=== PATIENT | female | born 1975 | race Caucasian/White ===

== ENCOUNTER → 2017-08-09 | Outpatient (CLI) | payer OTHER ==
[~2017-08-09] MED LIST: BIOTIN1 MG PO; CATAPRES0.1 MG PO; DURAGESIC1 EACH TRANSDERM; DURAGESIC25 MCG/HR TRANSDERM; FIBER CHOICE C1.5 G1 PO; LYRICA 50 MG50 MG PO; LYRICA100 MG PO; MOBIC15 MG PO; NORCO 5-325 TA1 EACH PO; SEROQUEL 50 MG50 MG PO
== END ==
LOC: RAD 13:10
DX: M25.552 Pain in left hip (principal)

== ENCOUNTER → 2017-11-14 | Outpatient (CLI) | payer OTHER ==
[~2017-11-14] VITALS: Ht 162.6 cm; Wt 83.0 kg
--- NOTE | ~2017-11-14 | HPC ---
[facility] [place] [address] PAIN MANAGEMENT CONSULTATION Name: ELSA ENGLISH Room #: REG TYLER Perez.#: [id number] Admission: 11/14/17 Attend Phys: Eron Shelton DO Discharge: Date of : 77 Report #: [id number] THIS REPORT FOR: //name// CC: Patty Shelton The patient is a 42-year-old female, prior seen in the pain clinic on 10/24/2017. The patient was seen in consultation at that time, diagnosed with lumbar radiculopathy status post decompressive laminectomy, chronic pain syndrome requiring complex medication management, neuropathic pain with left hip pain. We discussed differential diagnosis of primary left hip pain versus a left L2 radicular pain. We elected to move forward with left hip injection under fluoroscopy today. If this does not afford adequate relief, we will move forward with left L2-L3 transforaminal epidural injection. If this does not afford good relief, we can consider spinal cord stimulator as a possible therapeutic option to help with her chronic pain generator. I noted on consultation dictation on 10/24/2017 that I am leaving practice at the end of November. Hence, I would not take over any chronic pain management patients. We have elected to continue a short-term analgesic, I did renew the patient's Duragesic, decreasing from 25 to 12 mcg q.72 hours. I did continue hydrocodone 5/325 b.i.d. We also did continue Lyrica 100 mg t.i.d., 90 tablets. I gave the patient 2 refills at that time. She does return to the pain clinic today noting that pain had increased with a lowered opiate dose, though the patient had rated her pain anywhere from 5-10 on a VAS on intake questionnaire while she was still utilizing a higher dose opiate (Duragesic 25 mcg q.72 hours, hydrocodone 5/325 of 2-3 a day). She presents to pain clinic today for prior authorized left hip injection under fluoroscopy. We will renew Duragesic at 12 mcg for one more cycle (10 patches q.72 hours for 30 days).. I told the patient I will see her back in 2 weeks for reevaluation. If she has good relief with this injection, I will ask her to start to discontinue the Duragesic and simply wean down on hydrocodone. If, however, she gets no significant relief, we will perform a left L2-3 transforaminal epidural injection. Regardless, one of the two therapeutic interventions hopefully will mitigate her chronic pain generator to some degree, and we can discontinue Duragesic altogether. I suggest when we discontinue the Duragesic, we would likely start the patient on a scheduled hydrocodone 5/325 t.i.d. for 10 days, b.i.d. for 10 days, once daily for 10 days and then off altogether. We reviewed the fact that opiate medications are being used to provide analgesia adequate to support activities of daily living, not attempting to achieve a specific pain score on the 0-10 Visual Analog Scale. The current opiate medications are providing sufficient analgesia to allow the patient to participate in activities of daily living. The patient is not exhibiting any [address] [address] PAIN MANAGEMENT CONSULTATION Name: ENGLISHELSA CHU Room #: REG TYLER Ibarra#: [id number] Admission: 11/14/17 Attend Phys: Eron Shelton, DO Discharge: Date of : 77 Report #: [id number] aberrant behavior suggestive of drug diversion. The patient is not having any adverse reactions to medications. The patient is not suffering from daytime somnolence or mental acuity changes. The patient is managing opiate-induced constipation with appropriate vxqg-qri-sdpnuhd agents and dietary considerations. The patient was counseled on concern for caution with operating a motor vehicle while using opiate medications. A physical exam was performed and the patient's functional status was evaluated. All patients with back pain were advised against the bed rest greater than 4 days and were advised to return to normal activities. Pain score assessment was noted and the treatment plan was reviewed with the patient. All current medications, both prescribed and OTC were reviewed and reconciled on the electronic medical record. Tobacco screening was accomplished and smoking cessation was advised when indicated. BMI was noted and diet/exercise modification was recommended for all patients following outside normal parameters. I reviewed with the patient today their responsibilities to safeguard prescription medications, reviewed their responsibility to utilize medications only as prescribed by the physician. They are to seek and receive pain medications only from 1 physician group ( [facility]). They are to use 1 pharmacy and keep the clinic informed if they change pharmacies. Their responsibilities include making followup visits in a timely fashion and to avoid abrupt discontinuation of medication usage. Their responsibilities further include bringing their medications (bottles from the pharmacy with residual pills) to the visit for possible confirmation of pill counts and the patient understands it is their responsibility to submit to random drug screens to ensure both that the medications prescribed are present, and that no other controlled substances are present. All prescriptions provided today were generated electronically. ASSESSMENT: 1. Symptomatic lumbar radiculopathy, status post decompressive laminectomy, neuropathic pain requiring complex medication management. RECOMMENDATIONS: Medication management as noted above. 2. Acute exacerbation of left hip pain.. I did review x-rays taken 08/09/2017 of left hip, which shows normal alignment appearance of the hip, no acute bony abnormality; however, with pain noted with rotation and movement of the left hip, we elected to proceed with injection under fluoroscopy today. PROCEDURE NOTE: Left hip injection under fluoroscopy. PROCEDURE: After written informed consent was obtained, the patient was placed in supine position. Skin overlying the hip was cleansed with ChloraPrep. Skin [address] [address] PAIN MANAGEMENT CONSULTATION Name: ELSA ENGLISH [facility] [id number] Admission: 11/14/17 Attend Phys: Eron Shelton DO Discharge: Date of : 77 Report #: [id number] wheal with Xylocaine was raised. A 22-gauge stylet needle was placed to contact the anterior proximal aspect of the femoral head. Initial injection showed spread within the striated fibers anterior to the hip. Needle was repositioned. Second injection did show spread within the hip socket. This was followed with 40 mg triamcinolone, plus 2 mL of 0.5% preservative-free bupivacaine. Needle was removed. The area was cleansed. Band-Aid was applied. The patient told to use ice to the area. Follow up in 2 weeks for reevaluation. We will plan on moving forward with left L2-3 transforaminal epidural injection at next visit if she does not get relief with today's injection. <ELECTRONICALLY SIGNED> By: Eron Shelton DO 11/15/17 0659 1145 1731 Eron Shelton DO /kirk
[2017-11-14 08:36] VITALS: BP 129/87
== END | disposition home or self-care (01) ==
LOC: PAIN 11-01 12:29
DX: M25.552 Pain in left hip (principal); G89.4 Chronic pain syndrome; Z98.890 Other specified postprocedural states; Z79.891 Long term (current) use of opiate analgesic; Z88.8 Allergy status to other drugs, medicaments and biological substances

== ENCOUNTER → 2017-12-20 | Outpatient (CLI) | payer OTHER ==
[~2017-12-20] VITALS: Ht 162.6 cm; Wt 82.6 kg
--- NOTE | ~2017-12-20 | HPC ---
[facility] [place] [address] PAIN MANAGEMENT CONSULTATION Name: ELSA ENGLISH Room #: REG TYLER Perez.#: [id number] Admission: 12/20/17 Attend Phys: Eron Shelton DO Discharge: Date of : 77 Report #: [id number] THIS REPORT FOR: //name// CC: Patty Shelton The patient is a 42-year-old female, prior seen in pain clinic 11/14/2017. She was initially seen in consultation, 10/24/2017. Diagnosed with symptomatic lumbar radiculopathy status post decompressive laminectomy with component of neuropathic pain, left hip. We were asked to perform a left hip injection versus L2 transforaminal epidural injection to help delineate pathology. We ultimately progressed to perform a left hip joint injection 11/14/2017. This really afforded nominal relief. I have weaned her Duragesic now from 25 to 12 mcg. Continue hydrocodone 5 mg maximum b.i.d., prescription for 60 tablets generated 34 days ago, still has those tablets left. Returns to pain clinic today. We sought authorization for and plan to do a left L2-3 transforaminal epidural injection. She rates pain 8-9 on a VAS, exacerbated with standing, walking and bending. She is very desirous of trying to address the pain generator. I think the left L2-3 transforaminal epidural injection will be enlightening, will either afford good relief, if it affords only transient relief, we will refer to Neurosurgery sure there is no surgically correctable pathology. If there is not, the patient would be an excellent candidate for spinal cord stimulator. We talked about this at length. Presently, physical exam is unchanged from presentation. A 42-year-old female, BMI is 30.2 kilograms per meter squared. Vital signs stable as noted on the EMR, modest hypertension at blood pressure 139/95. Rises from chair using armrest, antalgic gait, pain radiating to the left hip and groin, pain exacerbated with hip flexion. Decreased patellar reflex on this side. Well-healed surgical scar compatible with prior decompressive laminectomy. Left hip x-ray is fairly unremarkable. ASSESSMENT: Symptomatic lumbar radiculopathy status post decompressive laminectomy. RECOMMENDATIONS: We will plan on performing left L2-3 transforaminal epidural injection next week. The patient is to work this evening and she is loathe to have an injection. Concerned that she may have some weakness and would not be able to work tonight. I have agreed to renew her Duragesic 12 mcg but limited to 5 patches, have her use this for another week. Continue rare use of hydrocodone. After the [facility] [address] [place] [address] PAIN MANAGEMENT CONSULTATION Name: ENGLISHELSA PARKER Room #: REG TYLER Ibarra#: [id number] Admission: 12/20/17 Attend Phys: Eron Shelton DO Discharge: Date of : 77 Report #: [id number] injection, we will plan on having her discontinue the Duragesic altogether and use hydrocodone 5/325 three a day for 5 days, 2 a day for 5 days, 1 a day for 5 days and then discontinue. Again, if injection afforded only transient relief, we will refer to Neurosurgery and consideration for spinal cord stimulator. We will defer to Dr. Delta Shelton or Zachary Moscoso for further therapy following the injection next week. <ELECTRONICALLY SIGNED> By: Eron Shelton DO 12/23/17 0710 1127 1933 Eron Shelton DO /nt
[2017-12-20 09:58] VITALS: BP 139/95
== END ==
LOC: PAIN 12-13 06:43
DX: M54.16 Radiculopathy, lumbar region (principal); M96.1 Postlaminectomy syndrome, not elsewhere classified

== ENCOUNTER → 2017-12-27 | Outpatient (CLI) | payer OTHER ==
[~2017-12-27] VITALS: Ht 162.6 cm; Wt 83.9 kg
--- NOTE | ~2017-12-27 | HPC ---
[facility] [place] [address] PAIN MANAGEMENT CONSULTATION Name: ELSA ENGLISH Room #: REG TYLER Ibarra#: [id number] Admission: 12/27/17 Attend Phys: Eron Shelton DO Discharge: Date of : 77 Report #: [id number] THIS REPORT FOR: //name// CC: Patty Shelton The patient is a 42-year-old female, prior seen on 12/20/2017. Diagnosed with symptomatic lumbar radiculopathy status post decompressive laminectomy with left L2 radicular pain pattern. We sought authorization for left L2-L3 transforaminal epidural injection under fluoroscopy. The patient presents to pain clinic today for said injection. Symptoms are unchanged from prior visit, 12/20/2017. ASSESSMENT: Symptomatic lumbar radiculopathy status post decompressive laminectomy. PROCEDURE: Transforaminal epidural injection under fluoroscopy, left L2-L3. PROCEDURE NOTE: After both written and informed consent was obtained including risk of spinal cord damage, infection, increased pain and paralysis, the patient agreed to proceed. The patient was taken to the fluoroscopy suite, placed in a prone position with appropriate abdominal bolstering. After sterile prep with ChloraPrep and sterile drape, a skin wheal with 1% Xylocaine was raised. A 22 gauge 4-1/2 inch epidural Tuohy needle was inserted. From an oblique approach into the posterior-superior aspect of the left L2-L3 neural foramen with continuous pressure on the glass syringe plunger for loss of resistance. Glass syringe was filled with 2 cc of 0.1 Xylocaine. The glass loss of resistance syringe was removed. A low volume extension tubing was connected, negative aspiration was accomplished for cerebrospinal fluid or blood. 1 mL of Omnipaque was injected which showed spread both within the epidural space and laterally along the nerve root. This was followed with 80 mg of triamcinolone plus 1 mL of 1.5% preservative-free Xylocaine. Needle was partially withdrawn, 0.5 mL of Xylocaine was injected to clear the needle and the needle was removed. The area was cleansed, band-aid was applied. The patient was allowed to ambulate to the recovery room, discharged in good and stable condition. <ELECTRONICALLY SIGNED> By: Eron Shelton DO 12/30/17 0706 0924 1401 Eron Shelton DO /nt
[2017-12-27 08:50] VITALS: BP 130/88
== END | disposition home or self-care (01) ==
LOC: PAIN 07:09
DX: M54.16 Radiculopathy, lumbar region (principal); G89.29 Other chronic pain; Z98.890 Other specified postprocedural states; Z88.8 Allergy status to other drugs, medicaments and biological substances; Z79.891 Long term (current) use of opiate analgesic

== ENCOUNTER → 2018-01-09 | Outpatient (CLI) | payer OTHER | LOC: MRI 07:09 → PAIN 14:30 → MRI 15:19 | DX: M54.16 Radiculopathy, lumbar region (principal) ==

== ENCOUNTER 2018-12-18 14:33 | Emergency (ER) | payer OTHER ==
[~2018-12-18] VITALS: Ht 160 cm; Wt 83.5 kg
[2018-12-18 15:19] LABS: ABSOLUTE NEUTROPHILS 4.6 thou/uL (1.4-8.2); BASOPHILS 0.6 % (0.0-2.0); EOSINOPHILS 1.2 % (0.0-3.0); HEMATOCRIT 38.5 % (37.0-47.0); HEMOGLOBIN 13.3 gm/dL (12.0-15.0); MCH 29.2 pg (26.0-34.0); MCHC 34.4 g/dL (28.0-37.0); MCV 84.9 fL (80.0-100.0); MONOCYTES 4.6 % (1.0-8.0); PLATELET COUNT 314 thou/uL (150-400); POLYS 74.6 % (36.0-66.0); RBC 4.54 mil/uL (4.20-5.00); RDW 14.2 % (10.5-14.5); WBC 6.2 thou/uL (4.0-11.0)
[2018-12-18 15:26] LABS: ANION GAP 11 mmol/L (7-16); BUN 10 mg/dL (7-18); CALCIUM 9.4 mg/dL (8.5-10.1); CHLORIDE 103 mmol/L (98-107); CO2 25 mmol/L (21-32); CREATININE 0.8 mg/dL (0.6-1.0); GLUCOSE 141 mg/dL (74-106); POTASSIUM 3.6 mmol/L (3.5-5.1); SODIUM 139 mmol/L (136-145)
[2018-12-18 15:36] LABS: SGOT 36 U/L (15-37); SGPT 53 U/L (30-65); TOTAL BILIRUBIN 0.2 mg/dL (<0.1-1.0); TOTAL PROTEIN 8.4 g/dL (6.4-8.2); TROPONIN-I <0.06 ng/mL (<0.06)
[2018-12-18] MEDS ORDERED: TRILEPTAL300 MG PO (16:13)
[2018-12-18] MEDS ORDERED: ATIVAN0.5 MG PO (18:36)
[2018-12-18 19:02] VITALS: BP 136/87
--- NOTE | 2018-12-19 08:34 | EKG ---
[place] [address] [facility] [place] [address] ELECTROCARDIOGRAM REPORT Name: ELSA ENGLISH Room #: [facility]#: [id number] ������������������ Admission: 12/18/18 ������������������ Attend Phys: Discharge: 12/18/18 ������������������ Date of : 77 Report #: [id number] ����������������������������������������������������������������� [id number] THIS REPORT FOR: //name// [facility] ED Test Date: 2018-12-18 Test Time: 14:45:43 Pat Name: ELSA ENGLISH Department: Room: Gender: F Weapons Mechanic: : 1975 Requested By: Una Olivas Order Number: [id number] MD: Jarred Hylton Measurements Intervals [place] Rate: 108 P: 38 NH: 149 QRS: 12 QRSD: 68 T: -51 QT: 391 QTc: 524 Interpretive Statements Sinus tachycardia Nonspecific ST and T wave abnormality Prolonged QT interval Baseline wander in lead(s) V4 No previous ECG available for comparison Electronically Signed On 12-19-2018 8:33:55 CDT by Jarred Hylton [email or web address] ��������������������������������������������� <ELECTRONICALLY SIGNED> ���������������������������������������� By: Jarred Hylton MD, [facility] ��������������������������������������������� 12/19/18 0833 1445 1445 Jarred Hylton MD, FACC /EPI
== END 2018-12-18 19:02 | disposition home or self-care (01) ==
LOC: ER 14:33
PROVIDERS: Physician Assistant
DX: R42 Dizziness and giddiness (principal); R51 Headache; I10 Essential (primary) hypertension; M54.2 Cervicalgia; R20.2 Paresthesia of skin; Z90.49 Acquired absence of other specified parts of digestive tract; Z88.1 Allergy status to other antibiotic agents; Z91.030 Bee allergy status

== ENCOUNTER → 2019-02-18 | Outpatient (CLI) | payer OTHER ==
[~2019-02-18] VITALS: Ht 162.6 cm; Wt 84.5 kg
[~2019-02-18] MED LIST changes: +ATIVAN0.5 MG PO; +TRILEPTAL300 MG PO; +ZYRTEC10 M5 PO
--- NOTE | ~2019-02-18 | HPC ---
[facility] [place] [address] PAIN MANAGEMENT CONSULTATION Name: ELSA ENGLISH Room #: REG TYLER Chris.#: [id number] Admission: 02/18/19 Attend Phys: Delta Shelton DO Discharge: Date of : 77 Report #: [id number] THIS REPORT FOR: //name// CC: Dleta Tilley MD DATE OF SERVICE: 02/18/2019 REFERRING PHYSICIAN: Patty Tilley M.D. CHIEF COMPLAINT: Low back pain, bilateral lower extremity pain with paresthesias, left greater than right. HISTORY OF PRESENT ILLNESS: As you know, the patient is a 43-year-old female who reports acute changes in her low back symptoms began about 1-1/2 months ago. Indicates no injury or trauma. She has had constant pain since 2008 for which she received interventional treatments and ultimately surgery performed at the L4-L5 level. She indicates that the pain has now changed distribution, is radiating down the buttock and posterolateral thigh all the way to the bottom of the foot in a typical what appears to be S1 distribution. She states her pain is constant, exacerbated with activity or anything in excess. Rest, heat compresses, cold compresses and repositioning tends to improve pain. She is placing pain score 7/10. The patient denies injury or trauma that may have led to symptom reoccurrence. The patient's most recent imaging of January 09, 2018 shows postsurgical changes at the L4-L5 level with anterior lower lumbar spinal fusion. No significant central canal neural foraminal stenosis noted at any level. No pathologic findings in the epidural space. She has been referred back to our clinic to discuss options for treatment for suspected S1 radiculopathy. She indicates no injury or trauma. ALLERGIES: ERYTHROMYCIN. CURRENT MEDICATIONS: Zyrtec 10 mg once a day, Trileptal 300 mg twice a day, Lyrica 100 mg 3 times a day, and meloxicam 15 mg once a day. SOCIAL HISTORY: The patient denies tobacco, alcohol, IV or illicit drug use. She is working, not receiving workmen's compensation, unaccompanied today. IMAGING: There is no new imaging available. PHYSICAL EXAMINATION: VITAL SIGNS: Blood pressure 121/79, pulse 73, respiratory rate 16 and unlabored. The patient is 100% on room air. Height 5 feet 4 inches tall, weight 186.2 pounds, BMI calculated at 31.9. GENERAL: Well-developed, well-nourished, well-hydrated 43-year-old female, [place] [address] PAIN MANAGEMENT CONSULTATION Name: ELSA ENGLISH Room #: REG TYLER Ibarra#: [id number] Admission: 02/18/19 Attend Phys: Delta Shelton DO Discharge: Date of : 77 Report #: [id number] appears her stated age. She is placing current pain score at 7/10. HEENT: Normocephalic, atraumatic. Pupils equal, round, reactive to light. Extraocular muscles are intact. Sclerae nonicteric without injection. Dentition poor. LUNGS: Clear, no wheeze, rhonchi, no rales. CARDIOVASCULAR: Regular. No appreciable gallop, no rub. ABDOMEN: Soft, obese, normoactive bowel sounds. EXTREMITIES: Show no clubbing, no cyanosis, and no edema. MUSCULOSKELETAL: Lower extremity strength appears symmetrical 5/5. Muscle bulk and tone is equal and symmetrical in comparing left lower extremity to right. Seated straight leg raising negative. Supine straight leg raising positive on the left. Kenny's test negative. Modified Gaenslen's positive for axial low back pain. Ankle clonus negative. Babinski is negative. Gait is mildly antalgic favoring left lower extremity over right. ASSESSMENT: 1. Lumbar radiculopathy. 2. Lumbosacral spondylosis with radiculopathy. 3. Chronic intractable pain. PLAN: 1. Based on today's physical exam, the history the patient provides the descriptors that she uses in regards to pain as well as the distribution of symptoms radiating from the lower back to the buttock and down the posterolateral thigh to underneath the foot, the likely source of the patient's pain is lumbar radiculopathy involving the S1 dermatomal distribution. As indicated in the HPI, there is no new imaging. Previous imaging done a year ago showed no changes at the L5-S1 level, though this may have seen some changes and possibly even some surgical scarring could be contributing. The distribution of symptoms does appear to be S1 based on the physical exam and we discussed treatment options for lumbar radiculopathy with the patient today the following was discussed with the patient. We discussed physical therapy, stretching exercises and core strengthening as a treatment course. We discussed medication management utilizing elevated doses of Lyrica to control neuropathic symptoms. We discussed a lumbar epidural injection under fluoroscopic guidance to address acute lumbar radicular symptoms and ultimately surgical options. After reviewing the risks and benefits of all proposed treatment options, the patient chose to move forward with a lumbar epidural injection under fluoroscopic guidance. 2. The patient was advised that third green party payer restrictions require that authorization be obtained before the patient could undergo a lumbar epidural injection. Lumbar epidural injection approvals could take anywhere from 4-7 working days. We will begin this process immediately. Once we have achieved this authorization, we will have the patient return to undergo an L5-S1 interlaminar epidural steroid injection to address lumbar radicular symptoms. We will keep the patient apprised of our progress to obtain this authorization. [address] [address] PAIN MANAGEMENT CONSULTATION Name: ENGLISHELSA Room #: REG TYLER Perez.#: [id number] Admission: 02/18/19 Attend Phys: Delta Shelton DO Discharge: Date of : 77 Report #: [id number] 3. No medication changes made at today's visit. Recommend the patient to continue current medical therapy as previously prescribed. 4. We will see the patient back in followup visit once we have achieved authorization for the patient to undergo the first in a series of L5-S1 interlaminar epidural injections. 5. We wish to thank the referring physician, Dr. Patty Tilley, for the re-referral of the patient to our clinic. We will keep you apprised of response to treatment as we address suspected lumbar radiculopathy. Again, we wish to thank you for the opportunity to see the patient in consultation. By: 1122 2254 Delta Shelton DO /nt
[2019-02-18 08:22] VITALS: BP 121/79
--- NOTE | 2019-02-18 08:31 | NUR ---
Pain Clinic Assessment: 1. History of Osteoarthritis: History of Rheumatoid Arthritis: 2. Height: 5 ft. 4 in. 162.6 cm. Weight: 186.2 lb. oz. 84.460 kg. Patient's BMI: 31.9 3. Vital Signs: BP: 121/79 Pulse: 73 Resp: 16 Temp: 02 Sat: 100 ECG Mon: 4. Pain Intensity: 7 5. Fall Risk: Dizziness: N Needs help standing or walking: N Fallen in the last 3 months: N Fall risk comments: 6. Patient on Blood Thinner: None 7. History of Hypertension: N 8. Opioid Therapy greater than 6 weeks: Y Opiate Contract Signed: 12/20/17 9. Risk Assessment Tool Provided: 10-HIGH RISK 10. Functional Assessment Tool: 11. Recreational Drug Use: Never Drug Type: Tobacco Use: Never Smoker Tobacco Type: Amount or Packs/day: How Many Years: Alcohol Use: Yes Frequency: Special Occasions Quant:
== END ==
LOC: PAIN 06:38
DX: M47.27 Other spondylosis with radiculopathy, lumbosacral region (principal); G89.29 Other chronic pain

== ENCOUNTER → 2019-03-31 | Outpatient (CLI) | payer OTHER ==
[~2019-03-31] VITALS: Ht 162.6 cm; Wt 89.1 kg
[~2019-03-31] MED LIST changes: +NORCO 5-325 TA1 EAC1 PO; +PENNSAID112 GM TOP
[2019-03-31 10:47] VITALS: BP 128/84
--- NOTE | 2019-03-31 11:02 | NUR ---
Pain Clinic Assessment: 1. History of Osteoarthritis: Not Applicable History of Rheumatoid Arthritis: Not Applicable 2. Height: 5 ft. 4 in. 162.6 cm. Weight: 196.4 lb. oz. 89.087 kg. Patient's BMI: 33.7 3. Vital Signs: BP: 128/84 Pulse: 74 Resp: 16 Temp: 02 Sat: 98 ECG Mon: 4. Pain Intensity: 7 5. Fall Risk: Dizziness: N Needs help standing or walking: N Fallen in the last 3 months: N Fall risk comments: 6. Patient on Blood Thinner: None 7. History of Hypertension: N 8. Opioid Therapy greater than 6 weeks: Y Opiate Contract Signed: 12/20/17 9. Risk Assessment Tool Provided: 10-HIGH RISK 10. Functional Assessment Tool: / 11. Recreational Drug Use: Never Drug Type: Tobacco Use: Never Smoker Tobacco Type: Amount or Packs/day: How Many Years: Alcohol Use: Yes Frequency: Special Occasions Quant:
--- NOTE | 2019-04-07 07:47 | HPC ---
[facility] [place] [address] PAIN MANAGEMENT CONSULTATION Name: ELSA ENGLISH [id number] Admission: 03/31/19 Attend Phys: Delta Shelton DO Discharge: Date of : 77 Report #: [id number] THIS REPORT FOR: //name// CC: Delta Tilley DATE OF SERVICE: 03/31/2019 REFERRING PHYSICIAN: Dr. Patty Tilley. CHIEF COMPLAINT: Low back pain, bilateral lower extremity pain, left greater than right. HISTORY OF PRESENT ILLNESS: As you know, the patient is a 43-year-old female who returns today in followup visit having received precertification to undergo lumbar epidural injection under fluoroscopic guidance to address lumbar radiculopathy. 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 Apparently, this improved the patient's overall pain, but unfortunately she began to experience recurrent symptoms that appear to be related to the L5-S1 level. She returns today in followup visit having received precertification to undergo a lumbar epidural injection under fluoroscopic guidance to address her 7/10 pain. She indicates no injury or trauma that may have led to symptoms development. ALLERGIES: ERYTHROMYCIN. CURRENT MEDICATIONS: Hydrocodone/acetaminophen 5/325 one tab every 6 hours p.r.n. for pain, Zyrtec 10 mg per day, oxcarbazepine 300 mg twice a day, pregabalin 100 mg 3 times a day, meloxicam 15 mg once a day. SOCIAL HISTORY: The patient denies tobacco, alcohol, IV or illicit drug use. She is working, not receiving workmen's compensation, unaccompanied today. IMAGING: No new imaging available. Risk assessment tool for opioid addiction is 10/10, extremely high risk. Functional assessment pain impact score 60/70 indicating near complete interference of daily activities secondary to pain. PHYSICAL EXAMINATION: VITAL SIGNS: Blood pressure 120/84, pulse 74, respiratory rate 16 and unlabored. The patient is 98% on room air. Height 5 feet 4 inches tall, weight 196.4 pounds, BMI calculated 33.7. GENERAL: Well-developed, well-nourished, well-hydrated exogenously obese 43-year-old female appearing stated age, pain is rated around 7/10. HEENT: Normocephalic, atraumatic. Pupils equal, round, [place] [id number] PAIN MANAGEMENT CONSULTATION Name: ELSA ENGLISH Room #: REG [facility].#: [id number] Admission: 03/31/19 Attend Phys: Delta Shelton DO Discharge: Date of : 77 Report #: [id number] Poor dentition. EXTREMITIES: Show no clubbing, no cyanosis, and no edema. MUSCULOSKELETAL: Lower extremity strength symmetrical 5/5. Muscle bulk and tone is symmetrical in comparing left lower extremity to right. Seated straight leg raising negative. Supine straight leg raising positive, mainly on the left. Kenny's test negative. ASSESSMENT: 1. Symptomatic lumbar radiculopathy. 2. Lumbosacral spondylosis with radiculopathy. 3. Chronic intractable pain. PLAN: 1. The patient has returned today in followup visit requesting to undergo next in the series of epidural injections under fluoroscopic guidance. We have received precertification for the patient to undergo the procedure. She returns to undergo this procedure today. She has been advised of risks and benefits of the procedure. These risks include, but are not necessarily limited to bleeding, bruising, infection, worsening pain, no relief of pain, also risk of temporary or permanent muscle weakness, temporary or permanent nerve damage, possible paralysis, and . The patient states she understood and wished to proceed. 2. No medication changes made at today's visit. The patient will continue current medical therapy as previously prescribed. 3. The patient and I did discuss current medication management. There is possibility she could increase her Lyrica. Currently, she is at 300 mg. Top dose of this medication is somewhere between 450 and 600 mg. We will defer to the prescribing team if they wish to make those adjustments as this could help with neuropathic symptoms. 4. We will see the patient back in followup visit for the next in the series of lumbar epidural injections under fluoroscopic guidance. PROCEDURE NOTE DESCRIPTION OF PROCEDURE: L5-S1 left parasagittal epidural steroid injection under fluoroscopic guidance. After obtaining written consent, the patient was taken back to fluoroscopy suite, placed in prone position with pillow under abdomen to decrease lumbar lordosis. Skin overlying lumbosacral area, then prepped and draped in aseptic fashion. The L5-S1 vertebral interspace identified by AP fluoroscopy. Skin and subcutaneous tissue overlying target site of injection anesthetized with 3 mL of 1% lidocaine. A 20-gauge 3-1/2 inch Tuohy needle advanced under fluoroscopic guidance towards the epidural space using left paracentral approach. Epidural space identified [address] [address] PAIN MANAGEMENT CONSULTATION Name: ELSA ENGLISH Room #: REG [facility] Ibarra#: [id number] Admission: 03/31/19 Attend Phys: Delta Shelton DO Discharge: Date of : 77 Report #: [id number] using loss of resistance to air technique. After negative aspiration for heme or cerebrospinal fluid, 1 mL of Omnipaque injected. Lumbar epidurogram confirmed using both AP and lateral fluoroscopy. After negative aspiration for heme or cerebrospinal fluid, 5 mL of a solution containing 2 mL 40 mg per mL, 80 mg total triamcinolone along with 3 mL lidocaine 1% injected slowly. Needle then retracted fci, flushed with 1 mL of 1% lidocaine and then removed. Sterile bandage placed over injection site. No new motor deficits present in lower extremity following procedure. The patient tolerated procedure well, carefully escorted to recovery room in stable condition. No apparent complications. After meeting discharge criteria, the patient discharged home. <ELECTRONICALLY SIGNED> By: Delta Shelton DO 04/07/19 [id number] Delta Shelton DO /nt
== END | disposition home or self-care (01) ==
LOC: PAIN 06:51
DX: M47.27 Other spondylosis with radiculopathy, lumbosacral region (principal); G89.29 Other chronic pain; Z88.8 Allergy status to other drugs, medicaments and biological substances; Z79.899 Other long term (current) drug therapy

== ENCOUNTER → 2019-05-06 | Outpatient (CLI) | payer OTHER | LOC: MRI 07:05 | DX: G89.29 Other chronic pain (principal); M54.17 Radiculopathy, lumbosacral region; R20.2 Paresthesia of skin ==

== ENCOUNTER → 2019-10-14 | Outpatient (CLI) | payer OTHER | LOC: RAD 16:18 | DX: R06.02 Shortness of breath (principal) ==

== ENCOUNTER → 2020-01-13 | Outpatient (CLI) | payer OTHER ==
[2020-01-13 08:44] LABS: ABSOLUTE NEUTROPHILS 3.6 thou/uL (1.4-8.2); BASOPHILS 0.6 % (0.0-2.0); EOSINOPHILS 2.2 % (0.0-3.0); HEMATOCRIT 36.7 % (37.0-47.0); HEMOGLOBIN 12.6 gm/dL (12.0-15.0); LYMPHOCYTES 24.7 % (24.0-44.0); MCHC 34.3 g/dL (28.0-37.0); MCV 90.4 fL (80.0-100.0); MONOCYTES 6.8 % (1.0-8.0); PLATELET COUNT 214 thou/uL (150-400); POLYS 65.7 % (36.0-66.0); RBC 4.06 mil/uL (4.20-5.00); RDW 13.4 % (10.5-14.5); WBC 5.4 thou/uL (4.0-11.0)
[2020-01-13 09:01] LABS: ALBUMIN 3.7 g/dL (3.4-5.0); ANION GAP 8 mmol/L (7-16); BUN 17 mg/dL (7-18); CALCIUM 8.6 mg/dL (8.5-10.1); CHLORIDE 104 mmol/L (98-107); CHOLESTEROL 174 mg/dL (<200); CO2 27 mmol/L (21-32); CREATININE 0.9 mg/dL (0.6-1.0); GLUCOSE 86 mg/dL (74-106); HDL CHOLESTEROL 55 mg/dL (>40); LDL CHOLESTEROL 99 mg/dL (<100); POTASSIUM 3.8 mmol/L (3.5-5.1); SGOT 18 U/L (15-37); SGPT 34 U/L (30-65); SODIUM 139 mmol/L (136-145); TC:HDL 3.2 Ratio (Not establshd); TOTAL BILIRUBIN 0.3 mg/dL (0.2-1.0); TOTAL PROTEIN 6.6 g/dL (6.4-8.2); TRIGLYCERIDE 102 mg/dL (<150); VLDL 20 mg/dL (<40)
[2020-01-14 02:06] LABS: GLYCOHEMOGLOBIN (HGB A1C) 4.8 % (4.8-5.6)
== END ==
LOC: LABMALL 06:42
PROVIDERS: ATTEND Family Medicine
DX: H53.8 Other visual disturbances (principal); I10 Essential (primary) hypertension; R73.9 Hyperglycemia, unspecified

== ENCOUNTER → 2020-04-04 | Outpatient (CLI) | payer OTHER | LOC: MRI 15:54 | PROVIDERS: ATTEND Family Medicine | DX: R51.9 Headache, unspecified (principal); R42 Dizziness and giddiness ==

== ENCOUNTER 2020-05-10 14:53 | Emergency (ER) | payer OTHER ==
[~2020-05-10] VITALS: Ht 162.6 cm; Wt 91.6 kg
[2020-05-10 14:54] VITALS: BP 143/89
== END 2020-05-10 15:50 | disposition home or self-care (01) ==
LOC: ER 14:53
DX: S81.011A Laceration without foreign body, right knee, initial encounter (principal); Z98.51 Tubal ligation status; Z90.49 Acquired absence of other specified parts of digestive tract; Z79.899 Other long term (current) drug therapy; Z91.030 Bee allergy status; Z88.1 Allergy status to other antibiotic agents; W19.XXXA Unspecified fall, initial encounter; Y93.89 Activity, other specified; Y92.89 Other specified places as the place of occurrence of the external cause; Y99.8 Other external cause status